=== PATIENT | female | born 1935 | race Hispanic/Latino ===

== ENCOUNTER 2016-08-17 06:20 | Outpatient (CLI) | payer MEDICARE, OTHER ==
--- NOTE | 2016-08-17 09:02 | Ultrasound Report ---
ULTRASOUND RENAL INDICATION: Multiple renal cysts. COMPARISON: 09/27/2015 ultrasound and 01/16/2015 CT. FINDINGS: Renal sonography again suggests top normal renal cortical echogenicity. Grossly preserved contours. No hydronephrosis. Right kidney measures 8.2 x 4.4 x 4.7 cm with cortical thickness of 1.6 cm. At least 2 cysts inferiorly noted, the larger approximately 2 cm, image 13 while the smaller is 1.4 cm, image 15. A third small, upper pole cortical cyst measuring approximately 1 cm also seen on image 17. Left kidney estimated at 8.7 x 4.4 x 5.1 cm with cortical thickness of 1.3 cm. A upper to mid cortical cyst measuring 1.8 x 1.5 cm again seen, image 30. Urinary bladder also again demonstrates few nonspecific echogenicities along its wall, more so posteriorly as on images 31-34, amongst others in this patient with prior CT appearance of a lobulated/irregular urinary bladder with diverticulosis. CONCLUSION: 1. No acute renal sonographic abnormality with small bilateral renal cysts again noted, as described. 2. 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 Thank you for the opportunity to participate in this patient's care.
== END 2016-08-17 06:21 | disposition home or self-care (01) ==
LOC: US 06:20
PROVIDERS: ATTEND Urology
DX: Q61.02 Congenital multiple renal cysts (principal); K57.90 Diverticulosis of intestine, part unspecified, without perforation or abscess without bleeding
CPT/HCPCS: 76770

== ENCOUNTER 2016-12-12 13:55 | Emergency (ER) | payer MEDICARE, OTHER ==
[2016-12-12 14:31] LABS: Basophils % (Auto) 0.9 % (0.0-1.8); Eosinophils % (Auto) 1.5 % (0.0-4.3); Hematocrit 39.7 % (30.3-42.9); Hemoglobin 13.1 gm/dl (10.1-14.3); Mean Corpuscular HGB Conc 33 % (30-34); Mean Corpuscular Hemoglobin 30 pg (28-32); Mean Corpuscular Volume 90 fl (79-97); Platelet Count 198 K/mm3 (140-440); Red Blood Count 4.43 M/mm3 (3.65-5.03); Red Cell Distribution Width 14.4 % (13.2-15.2); White Blood Count 6.2 K/mm3 (4.5-11.0)
[2016-12-12 14:43] LABS: Anion Gap 16 mmol/L; BUN/Creatinine Ratio 24.28; Blood Urea Nitrogen 17 mg/dL (7-17); Calcium 9.3 mg/dL (8.4-10.2); Carbon Dioxide 28 mmol/L (22-30); Glucose 115 mg/dL (65-100); Sodium 141 mmol/L (137-145)
[2016-12-12 15:26] LABS: Bilirubin,Urine NEG (Negative); Blood,Urine NEG (Negative); Ketones,Urine NEG (Negative); Leukocyte Esterase,Urine NEG (Negative); Nitrite,Urine NEG (Negative); Protein,Urine <15 mg/dL mg/dL (Negative); Urobilinogen,Urine < 2.0 mg/dL (<2.0); WBC,Urine < 1.0 /HPF (0.0-6.0)
[2016-12-13] MEDS ORDERED: TYLENOL PO ONE (03:49)
[2016-12-13] MEDS ORDERED: NACL ONE (04:02)
--- NOTE | 2016-12-13 05:02 | Emergency Department Report ---
ED General Adult HPI - General Chief complaint: Nausea/Vomiting/Diarrhea Stated complaint: ABDOMINAL CRAMPS Time Seen by Provider: 12/13/16 03:43 Source: patient Mode of arrival: Ambulatory Limitations: No Limitations - History of Present Illness Initial comments: 80-year-old female comes in for complaint of abdominal pain located mostly on the left side. She reports that the pain is crampy with diarrhea for 2 days. She reports she has a history of diverticulitis and this is how her normal presentation presents. She denies any chest pain no nausea no vomiting. Denies any dysuria or any headaches. He reports" if I could give myself my own antibiotics would". He has a past medical history of arthritis COPD GERD congenital hydrocephalus diverticulitis. She's had a brain surgery hip surgery with replacement she's had an appendectomy a cholecystectomy. - Related Data Home Medications Medication Instructions Recorded Confirmed Last Taken Atorvastatin [Lipitor] 40 mg PO DAILY 06/02/13 04/19/15 04/18/15 21:00 Iron 1 tab PO DAILY 06/02/13 04/19/15 04/18/15 07:00 Isosorbide Mononitrate 60 mg PO BID 06/02/13 04/19/15 04/18/15 21:00 Levothyroxine [Synthroid] 112 mcg PO DAILY 06/02/13 04/19/15 04/18/15 21:00 Nortriptyline [Pamelor] 25 mg PO DAILY 06/02/13 04/19/15 04/18/15 21:00 Tolterodine Tartrate [Detrol] 4 mg PO DAILY 06/02/13 04/19/15 04/18/15 21:00 Aspirin EC [Aspirin Enteric Coated 81 mg PO QDAY 04/11/15 04/19/15 10 Days Ago TAB] Docusate Calcium [Stool Softener] 240 mg PO QDAY 04/11/15 04/19/15 04/18/15 07: 00 Losartan/Hydrochlorothiazide 1 tab PO QDAY 04/11/15 04/19/15 04/18/15 21:00 [Hyzaar 100-25 TAB] Ranitidine HCl [Zantac 150 MG TAB] 150 mg PO BID 04/11/15 04/19/15 04/18/15 07: 00 Tocopherol (Nf) [Vitamin E Cap 400 unit PO QDAY 04/11/15 04/19/15 04/18/15 07:00 (Nf)] ALBUTEROL Inhaler [ProAir HFA 1 puff IH PRN PRN 04/19/15 04/19/15 2 Weeks Ago Inhaler] Fluticasone [Flonase] 2 sprays NS PRN PRN 04/19/15 04/19/15 2 Weeks Ago Previous Rx's Medication Instructions Recorded Last Taken Type HYDROcodone/APAP 5-325 [[place] 1 - 2 each PO Q6HR PRN #14 tablet 03/25/15 3 Months Ago Rx 5-325 mg TAB] HYDROcodone/APAP 5-325 [[place] 1 each PO Q6HR PRN #20 tablet 04/19/15 Unknown Rx 5/325] Ciprofloxacin HCl [Ciprofloxacin 500 mg PO Q12H #14 tab 12/13/16 Unknown Rx TAB] metroNIDAZOLE [Flagyl] 500 mg PO Q12HR #14 tab 12/13/16 Unknown Rx Allergies Allergy/AdvReac Type Severity Reaction Status Date / Time codeine AdvReac Severe PASSOUT, Verified 06/15/13 14:30 Sulfa (Sulfonamide AdvReac Severe Swelling Verified 06/15/13 14:30 Antibiotics) amlodipine besylate AdvReac Swelling Verified 04/19/15 11:19 [[facility]] Penicillins AdvReac Swelling Verified 06/15/13 14:30 ED Review of Systems ROS: Stated complaint: ABDOMINAL CRAMPS Other details as noted in HPI Constitutional: denies: chills, fever Eyes: denies: eye pain, eye discharge, vision change ENT: denies: ear pain, throat pain Respiratory: denies: cough, shortness of breath, wheezing Gastrointestinal: abdominal pain, diarrhea. denies: nausea, vomiting ED Past Medical Hx - Past Medical History Previous Medical History?: Yes Hx Hypertension: Yes (30 YEARS) Hx GERD: Yes Hx Renal Disease: No Hx Arthritis: Yes Hx Asthma: No Hx COPD: Yes Additional medical history: angina - Surgical History Past Surgical History?: Yes Hx Cholecystectomy: Yes (2002) Hx Appendectomy: Yes (1969) Additional Surgical History: brain surgery, hip/knee replacements - Social History Smoking Status: Never Smoker Substance Use Type: Prescribed - Medications Home Medications: Home Medications Medication Instructions Recorded Confirmed Last Taken Type Atorvastatin [Lipitor] 40 mg PO DAILY 06/02/13 04/19/15 04/18/15 21:00 History Iron 1 tab PO DAILY 06/02/13 04/19/15 04/18/15 07:00 History Isosorbide Mononitrate 60 mg PO BID 06/02/13 04/19/15 04/18/15 21:00 History Levothyroxine [Synthroid] 112 mcg PO DAILY 06/02/13 04/19/15 04/18/15 21:00 History Nortriptyline [Pamelor] 25 mg PO DAILY 06/02/13 04/19/15 04/18/15 21:00 History Tolterodine Tartrate [Detrol] 4 mg PO DAILY 06/02/13 04/19/15 04/18/15 21:00 History HYDROcodone/APAP 5-325 [[place] 1 - 2 each PO Q6HR PRN #14 tablet 03/25/15 3 Months Ago Rx 5-325 mg TAB] Aspirin EC [Aspirin Enteric Coated 81 mg PO QDAY 04/11/15 04/19/15 10 Days Ago History TAB] Docusate Calcium [Stool Softener] 240 mg PO QDAY 04/11/15 04/19/15 04/18/15 07: 00 History Losartan/Hydrochlorothiazide 1 tab PO QDAY 04/11/15 04/19/15 04/18/15 21:00 History [Hyzaar 100-25 TAB] Ranitidine HCl [Zantac 150 MG TAB] 150 mg PO BID 04/11/15 04/19/15 04/18/15 07: 00 History Tocopherol (Nf) [Vitamin E Cap 400 unit PO QDAY 04/11/15 04/19/15 04/18/15 07: 00 History (Nf)] ALBUTEROL Inhaler [ProAir HFA 1 puff IH PRN PRN 04/19/15 04/19/15 2 Weeks Ago History Inhaler] Fluticasone [Flonase] 2 sprays NS PRN PRN 04/19/15 04/19/15 2 Weeks Ago History HYDROcodone/APAP 5-325 [[place] 1 each PO Q6HR PRN #20 tablet 04/19/15 Unknown Rx 5/325] Ciprofloxacin HCl [Ciprofloxacin 500 mg PO Q12H #14 tab 12/13/16 Unknown Rx TAB] metroNIDAZOLE [Flagyl] 500 mg PO Q12HR #14 tab 12/13/16 Unknown Rx ED Physical Exam - General Limitations: No Limitations General appearance: alert - Head Head exam: Present: atraumatic, normocephalic - Eye Eye exam: Present: normal appearance, other (blind left eye) - ENT ENT exam: Present: mucous membranes moist - Neck Neck exam: Present: normal inspection - Respiratory Respiratory exam: Present: normal lung sounds bilaterally. Absent: respiratory distress - Cardiovascular Cardiovascular Exam: Present: regular rate, normal rhythm. Absent: systolic murmur, diastolic murmur, rubs, gallop - GI/Abdominal GI/Abdominal exam: Present: soft, tenderness (lower quadrant tenderness), normal bowel sounds. Absent: guarding, rebound, rigid, mass, bruit, pulsatile mass - Extremities Exam Extremities exam: Present: normal inspection - Back Exam Back exam: Present: normal inspection - Neurological Exam Neurological exam: Present: alert, oriented X3 ED Course Vital Signs 12/12/16 14:04 Temperature 98.2 F Pulse Rate 78 Respiratory 20 Rate Blood Pressure 140/78 O2 Sat by Pulse 96 Oximetry ED Medical Decision Making - Lab Data Result diagrams: 12/12/16 14:10 12/12/16 14:10 - Radiology Data Radiology results: report reviewed, image reviewed IMPRESSION: There has been a cholecystectomy. The bile ducts are normal in caliber.. There stones in the lower pole of the right kidney. There are bilateral kidney cysts. There are no ureteral stones. There is no hydronephrosis.. There is no bowel obstruction, colitis or enteritis. There is no diverticulitis. The appendix is not identified.. There are diverticula of the urinary bladder. There is no bladder mass or stone.. There has been hysterectomy.. There is no ascites or free air, abscess or adenopathy.. Transcribed By: CO Dictated By: MARIELLE CALVILLO MD Electronically Authenticated By: MARIELLE CALVILLO MD Signed Date/Time: 12/13/16 3404 - Medical Decision Making Patient has been evaluated by this provider in an emergency room. This case was discussed with Dr. Vogel. CT was ordered Tylenol for pain blood work was within normal limits. Patient to be discharged on Cipro and Flagyl and to follow up with her primary care provider patient verbalized understanding. Critical care attestation.: If time is entered above; I have spent that time in minutes in the direct care of this critically ill patient, excluding procedure time. ED Disposition Clinical Impression: Abdominal pain Qualifiers: Abdominal location: left lower quadrant Qualified Code(s): R10.32 - Left lower quadrant pain Disposition: DISCHARGED TO HOME OR SELFCARE Is pt being admited?: No Does the pt Need Aspirin: No Condition: Stable Instructions: Diverticulitis (ED), Diverticulosis Diet (ED) Additional Instructions: Leese take antibiotics as prescribed. Please follow-up with your primary care provider if symptoms persist or gets worse. Prescriptions: Ciprofloxacin HCl [Ciprofloxacin TAB] 500 mg PO Q12H #14 tab metroNIDAZOLE [Flagyl] 500 mg PO Q12HR #14 tab Referrals: MALINDA YATES MD [Primary Care Provider] - 3-5 Days
--- NOTE | 2016-12-13 05:02 | Cat Scan Report ---
FINAL REPORT PROCEDURE: CT ABDOMEN PELVIS W CON TECHNIQUE: Computerized axial tomography of the abdomen and pelvis was performed after the IV injection of iodinated nonionic contrast. HISTORY: abd pain concern for diverticular COMPARISON: 01/16/2015 FINDINGS: Visualized lower thorax: No significant abnormality. Liver: Normal size and attenuation. Spleen: Normal size and attenuation. Gallbladder and biliary system: There has been a cholecystectomy. The bile ducts are normal in caliber.. Pancreas: Normal. Adrenals: Normal. Kidneys: There stones in the lower pole of the right kidney. There are bilateral kidney cysts. There are no ureteral stones. There is no hydronephrosis.. GI tract: There is no bowel obstruction, colitis or enteritis. There is no diverticulitis. The appendix is not identified.. Lymph nodes and mesentery: Normal. Vasculature: There is calcified plaque in the abdominal aorta. There is no aneurysm.. Bladder: There are diverticula of the urinary bladder. There is no bladder mass or stone.. Reproductive organs: There has been hysterectomy.. Peritoneum: There is no ascites or free air, abscess or adenopathy.. Musculoskeletal structures: No significant abnormality. Other: There is a ventral hernia containing fat only. There is a PRODUCE INSPECTOR shunt catheter. The tip is in the left lower quadrant of the abdomen.. IMPRESSION: There has been a cholecystectomy. The bile ducts are normal in caliber.. There stones in the lower pole of the right kidney. There are bilateral kidney cysts. There are no ureteral stones. There is no hydronephrosis.. There is no bowel obstruction, colitis or enteritis. There is no diverticulitis. The appendix is not identified.. There are diverticula of the urinary bladder. There is no bladder mass or stone.. There has been hysterectomy.. There is no ascites or free air, abscess or adenopathy..
[2016-12-13 05:51] VITALS: BP 145/67
== END 2016-12-13 05:52 | disposition home or self-care (01) ==
LOC: ED 13:55
DX: R10.32 Left lower quadrant pain (principal); I10 Essential (primary) hypertension; K21.9 Gastro-esophageal reflux disease without esophagitis; J44.9 Chronic obstructive pulmonary disease, unspecified
CPT/HCPCS: 36415; 74177; 80048; 81001; 85025; 99284; Q9967

== ENCOUNTER 2019-01-23 18:25 | Emergency (ER) | payer MEDICARE, OTHER ==
--- NOTE | 2019-01-23 18:35 | Event Note ---
ED Screening Note ED Screening Note: Pt presents with palpitations that began today no CP no SOB chronic LE edema PMHx GERD, HTN This initial assessment/diagnostic orders/clinical plan/treatment(s) is/are subject to change based on patients health status, clinical progression and re- assessment by fellow clinical providers in the ED. Further treatment and workup at subsequent clinical providers discretion. Patient/guardian urged not to elope from the ED as their condition may be serious if not clinically assessed and managed. Initial orders include: labs, UA, EKG, CXR
[2019-01-23 19:10] LABS: Bilirubin,Urine NEG (Negative); Blood,Urine NEG (Negative); Color,Urine Yellow (Yellow); Mucus,Urine FEW /HPF; Protein,Urine <15 mg/dL mg/dL (Negative); Urobilinogen,Urine < 2.0 mg/dL (<2.0)
--- NOTE | 2019-01-23 19:18 | XRay Report ---
CHEST 2 VIEWS INDICATION / CLINICAL INFORMATION: Chest Pain. COMPARISON: Not currently available. FINDINGS: SUPPORT DEVICES: Tubing overlying the left hemithorax medially is likely related to a HYDROGEOLOGIST shunt cathet er. HEART / MEDIASTINUM: The heart size and pulmonary vasculature are normal. The aorta is normal in brayden rob. LUNGS / PLEURA: No significant pulmonary or pleural abnormality. No pneumothorax. ADDITIONAL FINDINGS: No significant additional findings. IMPRESSION: No acute findings. Signer Name: Parth Elliott MD Signed: 01/23/2019 7:13 PM Workstation Name: [id number]
[2019-01-23 19:28] LABS: Basophils # (Auto) 0.1 K/mm3 (0.0-0.1); Basophils % (Auto) 0.8 % (0.0-1.8); Eosinophils # (Auto) 0.2 K/mm3 (0.0-0.4); Eosinophils % (Auto) 2.6 % (0.0-4.3); Hematocrit 39.7 % (30.3-42.9); Hemoglobin 13.8 gm/dl (10.1-14.3); Lymphocytes # (Auto) 2.3 K/mm3 (1.2-5.4); Lymphocytes % (Auto) 26.6 % (13.4-35.0); Mean Corpuscular HGB Conc 35 % (30-34); Mean Corpuscular Volume 88 fl (79-97); Monocytes # (Auto) 0.7 K/mm3 (0.0-0.8); Monocytes % (Auto) 7.6 % (0.0-7.3); Platelet Count 237 K/mm3 (140-440); Red Blood Count 4.53 M/mm3 (3.65-5.03); Red Cell Distribution Width 15.5 % (13.2-15.2)
[2019-01-23 19:38] LABS: INR 0.92 (0.87-1.13)
[2019-01-23 19:39] LABS: Partial Thromboplastin Time 27.9 Sec. (24.2-36.6)
[2019-01-23 19:43] LABS: Alanine Aminotransferase 12 units/L (7-56); Albumin 4.5 g/dL (3.9-5); BUN/Creatinine Ratio 18; Blood Urea Nitrogen 16 mg/dL (7-17); Calcium 9.5 mg/dL (8.4-10.2); Hemolysis Index 5
--- NOTE | 2019-01-23 21:50 | Emergency Department Report ---
ED Palpitations HPI - General Chief Complaint: Arrhythmia/Palpitations Stated Complaint: HEART PROBLEMS Time Seen by Provider: 01/23/19 19:33 Source: patient, EMS Mode of arrival: Ambulatory Limitations: No Limitations - History of Present Illness Initial Comments: She has an 83-year-old female that presents emergency room with complaints of palpitations. Patient states 3 hours prior to arrival patient had approximately 30 minutes of palpitations. Patient states those symptoms have since resolved. Patient states the symptoms only lasted for about 30 minutes. Patient states that she is back to normal. Patient states when the symptoms went on she also felt weak. Patient denies missing medications. Patient denies chest pain shortness of breath. Patient denies fever or chills. Patient states she feels fine now MD Complaint: palpitations -: Sudden Context: occured during rest Associated Symptoms: denies: chest pain, shortness of breath, syncope, near- syncope, nausea/vomiting, anxiety, diaphoresis, cough, parasthesias, feeling of impending doom, muscle cramps - Related Data Home Medications Medication Instructions Recorded Confirmed Last Taken Atorvastatin [Lipitor] 40 mg PO DAILY 06/02/13 12/27/17 04/18/15 21:00 Iron [Iron 18 MG TAB] 1 tab PO DAILY 06/02/13 12/27/17 04/18/15 07:00 Nortriptyline [Pamelor] 25 mg PO BID 06/02/13 12/27/17 04/18/15 21:00 Tolterodine Tartrate [Detrol] 4 mg PO DAILY 06/02/13 12/27/17 04/18/15 21:00 Aspirin EC 81 mg PO QDAY 04/11/15 12/27/17 10 Days Ago ~04/09/15 Docusate Calcium [Stool Softener] 240 mg PO QDAY 04/11/15 12/27/17 04/18/15 07:00 Losartan/Hydrochlorothiazide 1 tab PO QDAY 04/11/15 12/27/17 04/18/15 21:00 [Hyzaar 100-25 TAB] Ranitidine HCl [Zantac] 150 mg PO BID 04/11/15 12/27/17 04/18/15 07:00 Tocopherol (Nf) [Vitamin E Cap 400 unit PO QDAY 04/11/15 12/27/17 04/18/15 07:00 (Nf)] ALBUTEROL Inhaler (OR & NICU) 1 puff IH PRN PRN 04/19/15 12/27/17 2 Weeks Ago [ProAir HFA Inhaler] ~04/05/15 Fluticasone [Flonase] 2 sprays NS PRN PRN 04/19/15 12/27/17 2 Weeks Ago ~04/05/15 Loratadine [Allergy Relief] 10 mg PO QDAY 12/27/17 12/27/17 Unknown Rosuvastatin Calcium [Crestor] 40 mg PO QDAY 12/27/17 12/27/17 Unknown Previous Rx's Medication Instructions Recorded Last Taken Type HYDROcodone/APAP 5-325 [[place] 1 - 2 each PO Q6HR PRN #14 tablet 03/25/15 3 Months Ago Rx 5-325 mg TAB] ~01/17/15 HYDROcodone/APAP 5-325 [[place] 1 each PO Q6HR PRN #20 tablet 04/19/15 Unknown Rx 5-325 mg TAB] Isosorbide Mononitrate 30 mg PO BID #30 tablet 12/28/17 Unknown Rx guaiFENesin [Robitussin] 5 ml PO TID PRN #100 ml 06/16/18 Unknown Rx levoFLOXacin [Levaquin TAB] 500 mg PO QDAY #7 tablet 06/16/18 Unknown Rx Nitrofurantoin Monohyd/M-Cryst 100 mg PO BID #14 capsule 11/01/18 Unknown Rx [Macrobid 100 mg Capsule] Levothyroxine [Synthroid] 125 mcg PO DAILY 15 Days #15 tablet 01/23/19 Unknown Rx Allergies Allergy/AdvReac Type Severity Reaction Status Date / Time codeine AdvReac Severe PASSOUT, Verified 01/23/19 18:27 Sulfa (Sulfonamide AdvReac Severe Swelling Verified 01/23/19 18:27 Antibiotics) amlodipine besylate AdvReac Swelling Verified 01/23/19 18:27 [[facility]] Penicillins AdvReac Swelling Verified 01/23/19 18:27 ED Review of Systems ROS: Stated complaint: HEART PROBLEMS Other details as noted in HPI Constitutional: denies: chills, fever Eyes: denies: eye pain, eye discharge, vision change ENT: denies: ear pain, throat pain Respiratory: denies: cough, shortness of breath, wheezing Cardiovascular: denies: chest pain, palpitations Endocrine: no symptoms reported Gastrointestinal: denies: abdominal pain, nausea, diarrhea Genitourinary: denies: urgency, dysuria, discharge Musculoskeletal: denies: back pain, joint swelling, arthralgia Skin: denies: rash, lesions Neurological: denies: headache, weakness, paresthesias Psychiatric: denies: anxiety, depression Hematological/Lymphatic: denies: easy bleeding, easy bruising ED Past Medical Hx - Past Medical History Previous Medical History?: Yes Hx Hypertension: Yes Hx CVA: Yes Hx GERD: Yes Hx Renal Disease: No Hx Arthritis: Yes Hx Kidney Stones: Yes Hx Asthma: No Hx COPD: Yes Additional medical history: angina - Surgical History Past Surgical History?: Yes Hx Cholecystectomy: Yes Hx Appendectomy: Yes Additional Surgical History: brain surgery, hip/knee replacements - Family History Family history: no significant - Social History Smoking Status: Never Smoker Substance Use Type: None - Medications Home Medications: Home Medications Medication Instructions Recorded Confirmed Last Taken Type Atorvastatin [Lipitor] 40 mg PO DAILY 06/02/13 12/27/17 04/18/15 21:00 History Iron [Iron 18 MG TAB] 1 tab PO DAILY 06/02/13 12/27/17 04/18/15 07:00 History Nortriptyline [Pamelor] 25 mg PO BID 06/02/13 12/27/17 04/18/15 21:00 History Tolterodine Tartrate [Detrol] 4 mg PO DAILY 06/02/13 12/27/17 04/18/15 21:00 History HYDROcodone/APAP 5-325 [[place] 1 - 2 each PO Q6HR PRN #14 tablet 03/25/15 3 Months Ago Rx 5-325 mg TAB] ~01/17/15 Aspirin EC 81 mg PO QDAY 04/11/15 12/27/17 10 Days Ago History ~04/09/15 Docusate Calcium [Stool Softener] 240 mg PO QDAY 04/11/15 12/27/17 04/18/15 07:00 History Losartan/Hydrochlorothiazide 1 tab PO QDAY 04/11/15 12/27/17 04/18/15 21:00 History [Hyzaar 100-25 TAB] Ranitidine HCl [Zantac] 150 mg PO BID 04/11/15 12/27/17 04/18/15 07:00 History Tocopherol (Nf) [Vitamin E Cap 400 unit PO QDAY 04/11/15 12/27/17 04/18/15 07:00 History (Nf)] ALBUTEROL Inhaler (OR & NICU) 1 puff IH PRN PRN 04/19/15 12/27/17 2 Weeks Ago History [ProAir HFA Inhaler] ~04/05/15 Fluticasone [Flonase] 2 sprays NS PRN PRN 04/19/15 12/27/17 2 Weeks Ago History ~04/05/15 HYDROcodone/APAP 5-325 [[place] 1 each PO Q6HR PRN #20 tablet 04/19/15 12/27/17 Unknown Rx 5-325 mg TAB] Loratadine [Allergy Relief] 10 mg PO QDAY 12/27/17 12/27/17 Unknown History Rosuvastatin Calcium [Crestor] 40 mg PO QDAY 12/27/17 12/27/17 Unknown History Isosorbide Mononitrate 30 mg PO BID #30 tablet 12/28/17 Unknown Rx guaiFENesin [Robitussin] 5 ml PO TID PRN #100 ml 06/16/18 Unknown Rx levoFLOXacin [Levaquin TAB] 500 mg PO QDAY #7 tablet 06/16/18 Unknown Rx Nitrofurantoin Monohyd/M-Cryst 100 mg PO BID #14 capsule 11/01/18 Unknown Rx [Macrobid 100 mg Capsule] Levothyroxine [Synthroid] 125 mcg PO DAILY 15 Days #15 tablet 01/23/19 Unknown Rx ED Physical Exam - General Limitations: No Limitations General appearance: alert, in no apparent distress - Head Head exam: Present: atraumatic, normocephalic - Eye Eye exam: Present: normal appearance, PERRL Pupils: Present: normal accommodation - ENT ENT exam: Present: mucous membranes moist - Neck Neck exam: Present: normal inspection - Respiratory Respiratory exam: Present: normal lung sounds bilaterally. Absent: respiratory distress, wheezes, rales, chest wall tenderness - Cardiovascular Cardiovascular Exam: Present: regular rate, normal rhythm, normal heart sounds. Absent: systolic murmur, diastolic murmur, rubs, gallop - GI/Abdominal GI/Abdominal exam: Present: soft, normal bowel sounds - Extremities Exam Extremities exam: Present: normal inspection - Back Exam Back exam: Present: normal inspection - Neurological Exam Neurological exam: Present: alert, oriented X3 - Psychiatric Psychiatric exam: Present: normal affect, normal mood - Skin Skin exam: Present: warm, dry, intact, normal color. Absent: rash ED Course Vital Signs 01/23/19 18:34 Temperature 98.1 F Pulse Rate 98 H Respiratory 18 Rate Blood Pressure 152/72 O2 Sat by Pulse 98 Oximetry - Reevaluation(s) Reevaluation #1: Patient states she is still feeling good. Patient tolerated by mouth intake. Discussed all results with patient. Patient is stable for discharge. Patient will be discharged home. Patient agrees to plan of care. Patient given discharge instructions. Patient voiced understanding of discharge instructions. 01/23/19 21:48 ED Medical Decision Making - Lab Data Result diagrams: 01/23/19 19:01 01/23/19 18:58 - EKG Data -: EKG Interpreted by Me EKG shows normal: sinus rhythm, axis, intervals, QRS complexes, ST-T waves Rate: normal - Radiology Data Radiology results: report reviewed, image reviewed interpreted by me: No acute findings a chest x-ray - Medical Decision Making Patient is an 83-year-old female presents to emergency room with complaints of palpitations. Patient's palpitations resolved prior to me seeing her. Patient is stable in ER entire time. Patient tolerated by mouth intake. Patient M [place] without difficulties. Patient's labs are unremarkable except for elevated TSH. 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 Patient's thyroid medication will be increased and patient will be discharged home. - Differential Diagnosis palpitations. Critical care attestation.: If time is entered above; I have spent that time in minutes in the direct care of this critically ill patient, excluding procedure time. ED Disposition Clinical Impression: Heart palpitations, Elevated TSH Hypothyroidism Qualifiers: Hypothyroidism type: unspecified Qualified Code(s): E03.9 - Hypothyroidism, unspecified Disposition: - TO HOME OR SELFCARE Is pt being admited?: No Does the pt Need Aspirin: No Condition: Stable Instructions: Palpitations (ED), Thyroid (By mouth) Additional Instructions: Patient to follow-up with primary care in 2-3 days. . Patient to return to ER if condition worsens. Patient to take meds as directed. Patient to increase water. Patient to rest. Patient to continue all meds. Prescriptions: Levothyroxine [Synthroid] 125 mcg PO DAILY 15 Days #15 tablet Referrals: MALINDA YATES MD [Primary Care Provider] - 2-3 Days Time of Disposition: 21:52
[2019-01-23 22:21] VITALS: BP 174/79
== END 2019-01-23 22:21 | disposition home or self-care (01) ==
LOC: ED 18:25
DX: R00.2 Palpitations (principal); R94.6 Abnormal results of thyroid function studies; E03.9 Hypothyroidism, unspecified; I10 Essential (primary) hypertension; K21.9 Gastro-esophageal reflux disease without esophagitis; M19.90 Unspecified osteoarthritis, unspecified site; J44.9 Chronic obstructive pulmonary disease, unspecified; Z90.49 Acquired absence of other specified parts of digestive tract; Z87.442 Personal history of urinary calculi; Z86.73 Personal history of transient ischemic attack (TIA), and cerebral infarction without residual deficits; Z98.890 Other specified postprocedural states; Z88.5 Allergy status to narcotic agent; Z88.2 Allergy status to sulfonamides; Z88.8 Allergy status to other drugs, medicaments and biological substances; Z79.899 Other long term (current) drug therapy
CPT/HCPCS: 36415; 71046; 80053; 81001; 83735; 83880; 84100; 84443; 84484; 85025; 85610; 85730; 93005; 93010

== ENCOUNTER 2020-12-30 16:51 | Emergency (ER) | payer MEDICARE, OTHER ==
[2020-12-30 20:02] LABS: Basophils # (Auto) 0.1 K/mm3 (0.0-0.1); Basophils % (Auto) 1.1 % (0.0-1.8); Eosinophils # (Auto) 0.3 K/mm3 (0.0-0.4); Eosinophils % (Auto) 3.9 % (0.0-4.3); Hematocrit 37.9 % (30.3-42.9); Hemoglobin 13.2 gm/dl (10.1-14.3); Lymphocytes % (Auto) 23.7 % (13.4-35.0); Mean Corpuscular HGB Conc 35 % (30-34); Mean Corpuscular Volume 90 fl (79-97); Monocytes # (Auto) 0.6 K/mm3 (0.0-0.8); Monocytes % (Auto) 7.6 % (0.0-7.3); Platelet Count 230 K/mm3 (140-440); Red Blood Count 4.24 M/mm3 (3.65-5.03); Red Cell Distribution Width 14.8 % (13.2-15.2)
[2020-12-30 20:24] LABS: Albumin 4.3 g/dL (3.9-5); Calcium 9.9 mg/dL (8.4-10.2)
--- NOTE | 2020-12-30 20:56 | Cat Scan Report ---
NONENHANCED CT SCAN OF THE HEAD: INDICATION / CLINICAL INFORMATION: 85 years Female; fall. TECHNIQUE: Routine CT head without contrast. All CT scans at this location are performed using CT dos e reduction for ALARA by means of automated exposure control. COMPARISON: CT scan of the head from December 26, 2017 FINDINGS: BRAIN / INTRACRANIAL CONTENTS: No intracranial sequela from the trauma; shallow scalp thickening in t he right posterior parietal region; no air-fluid level in the visualized portions of the paranasal si nuses Left temporal craniectomy; shunts entering the occipital bone, left temporal craniectomy and right po sterior parietal charlotte hole; lateral ventricles and third ventricle unchanged; large superior cerebell ar cyst unchanged Calcified emboli in the right sylvian fissure and in the right parietal lobe unchanged CRANIOCERVICAL JUNCTION: No significant abnormality. ORBITS: No significant abnormality of visualized orbits. SINUSES / MASTOIDS: No significant abnormality of the visualized paranasal sinuses or mastoid air merced ls. ADDITIONAL FINDINGS: None. IMPRESSION: Scalp hematoma in the right posterior parietal region; no intracranial sequela from the trauma; brain parenchyma unchanged Signer Name: Geovanna Vu MD Signed: 12/30/2020 8:52 PM Workstation Name: [id number]
--- NOTE | 2020-12-30 21:46 | Emergency Department Report ---
Head Injury w/o Laceration - HPI Chief Complaint: Fall Stated Complaint: FALL/HIT HEAD Time Seen by Provider: 12/30/20 21:35 Occurred When: Today Mechanism: Direct Blow Location: Parietal Severity: severe Head Inj w/o Lac: Yes Headache, No Loss of Consciousness, No Nausea, No Blurred Vision, No Altered Mental Status, No Focal Deficit, No Swelling, No Bruising, No Break in Skin, No Bleeding Other History: Patient is an 85-year-old female that presents emergency room with complaints of head injury and headache. Patient states that she slipped and fell against a tree and hit her head on the tree. Patient states she hit the right parietal aspect of her head. Patient states it is actually where her WEED BURNER shunt is. Patient states that she came to the emergency room to be checked out because she was having a headache and hit her head on a tree with a sinusitis. Patient denies loss of consciousness. Patient denies dizziness. Patient denies blurry vision. Patient denies weakness. Patient states she slipped off of her walker seat and landed against a tree. Patient denies any neck stiffness. Patient denies any neck pain. Patient denies chest pain and shortness of breath. Patient denies recent travel. Patient denies recent international travel. Patient denies exposure to the novel coronavirus. Patie nt denies sick contacts. Patient denies fever and chills. Patient denies cough. Patient denies diarrhea. Patient denies coming in contact with anybody with symptoms of the novel coronavirus. ED General PMH - Past Medical History General Medical History: hypertension Surgical History: other (Patient had a WEED BURNER shunt and brain surgery.) LMP (females 10-50): unknown - Family History Significant Family History: no pertinent family hx - Social History Smoking Status: Never Smoker Alcohol Use: none Drug Use: N ED Neuro ROS - Review of Systems Constitutional: no symptoms reported Eyes (ROS): no symptoms reported Ears, Nose, Mouth, Throat: no symptoms reported Respiratory: no symptoms reported Cardiology: no symptoms reported Gastrointestinal/Abdominal: no symptoms reported Genitourinary: no symptoms reported Musculoskeletal: no symptoms reported Skin: no symptoms reported Neurological: see HPI, headache Endocrine: no symptoms reported Hematologic/Lymphatic: no symptoms reported Head Injury W/O Lac Exam - Exam General: Vital signs noted. No distress. Alert and acting appropriately. Head: Yes Pupils are PERRL, No Hemotympanum, No Hematoma/Ecchymosis, No Epistaxis, No Stepoff/Deformity, No Laceration, No Abrasion Chest, Abd, & Ext: Yes Clear Lung Sounds, Yes Regular Heart Rhythm, No Neck Pain, No Chest Injury/Pain, No Heart Murmur, No Abdominal Tenderness, No Back Tenderness, No Extremity Injury Neuroligical (Head Inj W/O Lac: Yes Normal Speech, Yes Normal Gait, No Lethargy, No Disorientation, No Focal Numbness, No Focal Weakness Exam: Medical decision making: Patient is a 85-year-old female presents emergency room with complaints of headache and fall and head injury. Patient had her WEED BURNER shunt site that is in the right parietal skull. Patient had a head CT which was negative for acute finding. Patient had labs done which were essentially unremarkable. Patient stable for discharge. Patient requires inpatient or further emergency medical services. Patient stable for discharge. Patient was discharged home. . . == . I discussed all results and clinical findings with patient. I discussed plan of care with patient. Patient agrees with plan of care. Patient is stable for discharge. Patient will be discharged home. Patient given discharge instructions. Patient voiced understanding of discharge instructions. . . . CT scan report reviewed: . NONENHANCED CT SCAN OF THE HEAD: . INDICATION / CLINICAL INFORMATION: 85 years Female; fall. . TECHNIQUE: Routine CT head without contrast. All CT scans at this location are performed using CT. dose reduction for ALARA by means of automated exposure control. . COMPARISON: CT scan of the head from December 26, 2017. . FINDINGS: . BRAIN / INTRACRANIAL CONTENTS: No intracranial sequela from the trauma; shallow scalp thickening in. the right posterior parietal region; no air-fluid level in the visualized portions of the paranasal. sinuses. . Left temporal craniectomy; shunts entering the occipital bone, left temporal craniectomy and right. posterior parietal charlotte hole; lateral ventricles and third ventricle unchanged; large superior. cerebellar cyst unchanged. . Calcified emboli in the right sylvian fissure and in the right parietal lobe unchanged. . CRANIOCERVICAL JUNCTION: No significant abnormality. . ORBITS: No significant abnormality of visualized orbits. . SINUSES / MASTOIDS: No significant abnormality of the visualized paranasal sinuses or mastoid air. cells. . ADDITIONAL FINDINGS: None. . IMPRESSION: Scalp hematoma in the right posterior parietal region; no intracranial sequela from the trauma;. brain parenchyma unchanged. ED Disposition Clinical Impression: Fall Qualifiers: Encounter type: initial encounter Qualified Code(s): W19.XXXA - Unspecified fall, initial encounter Headache Qualifiers: Headache type: post-traumatic Headache chronicity pattern: acute headache Intractability: not intractable Qualified Code(s): G44.319 - Acute post- traumatic headache, not intractable Head injury Qualifiers: Encounter type: initial encounter Qualified Code(s): S09.90XA - Unspecified injury of head, initial encounter Scalp hematoma Qualifiers: Encounter type: initial encounter Qualified Code(s): S00.03XA - Contusion of scalp, initial encounter Disposition: TO HOME OR SELFCARE Is pt being admited?: No Does the pt Need Aspirin: No Condition: Stable Instructions: Facial or Scalp Contusion, Contusion, [id number] Additional Instructions: Patient to follow-up with primary care in 2 to 3 days. Patient to follow-up with your neurosurgeon in 2 to 3 days. Patient to rest. Patient to increase water. Patient to avoid strenuous exercise or heavy lifting until cleared by your neurosurgeon and primary care. Patient to take Tylenol as needed for pain. Patient continue all medications. Patient to return to the ER if condition worsens, changes or new symptoms arise. Referrals: LAUREN ECHEVARRIA MD [Primary Care Provider] - 3-5 Days Time of Disposition: 21:51
[2020-12-30 21:56] VITALS: BP 161/88
== END 2020-12-30 21:57 | disposition home or self-care (01) ==
LOC: ED 16:51
DX: S09.90XA Unspecified injury of head, initial encounter (principal); S00.03XA Contusion of scalp, initial encounter; I10 Essential (primary) hypertension; Z88.2 Allergy status to sulfonamides; Z88.8 Allergy status to other drugs, medicaments and biological substances; W01.0XXA Fall on same level from slipping, tripping and stumbling without subsequent striking against object, initial encounter; Y93.89 Activity, other specified; Y92.89 Other specified places as the place of occurrence of the external cause; Y99.8 Other external cause status
CPT/HCPCS: 36415; 70450; 80053; 85025